=== PATIENT | female | born 1960 | race American Indian/Alaskan Native ===

== ENCOUNTER 2017-06-24 08:56 | Day surgery (SDC) | payer OTHER ==
[~2017-06-24 08:56] MED LIST: ANCEF/STERILE WATER 2 GM/20 ML IV NR
[2017-06-24] MEDS ORDERED: LACTATED RINGERS 1,000 ML ONE (10:30)
[2017-06-24] MEDS ORDERED: PEPCID IV ONE (10:46)
[2017-06-24] MEDS ORDERED: LACTATED RINGERS 1,000 ML IV SCH (11:00)
[2017-06-24] MEDS ORDERED: VERSED IV NR (11:00)
[2017-06-24] MEDS ORDERED: PEPCID IV NR (11:00)
[2017-06-24] MEDS ORDERED: VERSED ONE (12:41)
[2017-06-24] MEDS ORDERED: DIPRIVAN 10 MG/ML IV ONE ×2 (12:41→13:29)
[2017-06-24] MEDS ORDERED: XYLOCAINE MPF 2% ONE (12:41)
[2017-06-24] MEDS ORDERED: SUBLIMAZE ONE (12:41)
[2017-06-24] MEDS ORDERED: HEPARIN 10,000 UNITS/10 ML ONE (12:43)
[2017-06-24] MEDS ORDERED: MARCAINE 0.25% INFILTRATI ONE (12:44)
[2017-06-24] MEDS ORDERED: NACL 0.9% 250ML 250 ML ONE (12:44)
[2017-06-24] MEDS ORDERED: XYLOCAINE 1%/ EPI 1:100,000 INFILTRATI ONE ×2 (12:45→13:17)
[2017-06-24] MEDS ORDERED: MARCAINE 0.25% IR ONE (13:00)
[2017-06-24] MEDS ORDERED: NACL 0.9% 250ML IV ONE (13:26)
[2017-06-24] MEDS ORDERED: HEPARIN 10,000 UNITS/10 ML IV ONE ×2 (13:26→13:42)
[2017-06-24] MEDS ORDERED: NACL 0.9% IR ONE ×2 (13:45→13:46)
--- NOTE | 2017-06-24 13:57 | Post Operative Note ---
Pre-op diagnosis: Poor venous access Post-op diagnosis: same Findings: as above Procedure: Rt IJ inf port insertion with fluro and sono site Anesthesia: MAC Surgeon: MARYBETH DUARTE Estimated blood loss: minimal Pathology: none Condition: stable Disposition: PACU
--- NOTE | 2017-06-24 13:59 | Discharge Summary ---
Short Stay Discharge Plan Weight Bearing Status: Full Weight Bearing Diet: regular Wound: open to air Follow up with: MADELIN LAUGHLIN MD [Primary Care Provider] - 7 Days Prescriptions: HYDROcodone/ACETAMINOPHEN [Hydrocodon-Acetaminophen 5-325] 1 each PO Q4HR PRN # 20 tablet PRN Reason: Pain
[2017-06-24] MEDS ORDERED: NORCO 5/325 PO PRN (14:19)
[2017-06-24 15:14] VITALS: BP 136/79
--- NOTE | 2017-06-24 15:31 | Fluoroscopy Report ---
FLUOROSCOPY CENTRAL VENOUS DEVICE PLACEMENT History: Tobmin-o-Ahat insertion, poor venous access. Findings: A single fluoroscopic image of the precordial region was obtained after placement of a right IJ Drocyw-a-Xqau. The distal tip of the Ykcqgj-s-Khhu terminates near the cavoatrial junction. There is no obvious pneumothorax. The visualized lungs are clear. Impression: Uwvbvh-q-Ndzy is in adequate position. No pneumothorax is visualized.
--- NOTE | 2017-06-24 17:05 | Anesthesia Day of Surgery ---
Anesthesia Day of Surgery - Day of Surgery Patient Examined: Yes Patient H&P Reviewed: Yes Patient is NPO: Yes
--- NOTE | 2017-06-24 17:05 | Anesthesia Consultation ---
Anesthesia Consult and Med Hx Date of service: 06/24/17 - Airway Anesthetic Teeth Evaluation: Good ROM Head & Neck: Adequate Mental/Hyoid Distance: Adequate Mallampati Class: Class II Intubation Access Assessment: Good - Pulmonary Exam CTA: Yes - Cardiac Exam Cardiac Exam: RRR - Pre-Operative Health Status ASA Pre-Surgery Classification: ASA2, ASA3 Proposed Anesthetic Plan: MAC - Cardiovascular System Hx Hypertension: Yes (2004) - Central Nervous System Hx Psychiatric Problems: No - Other Systems Hx Alcohol Use: No Hx Substance Use: No Hx Cancer: Yes
--- NOTE | 2017-06-24 17:06 | Post Anesthesia Evaluation ---
- Post Anesthesia Evaluation Patient Participated: Yes Airway Patent: Yes Stable Respiratory Function: Yes Nausea/Vomiting: No Temp > 96.8F: Yes Pain Manageable: Yes Adequeate Hydration: Yes Anesthesia Complications: No Block Receding Appropriately: Not Applicable Patient on Ventilator: No
--- NOTE | 2017-06-24 19:17 | Operative Report ---
PREOPERATIVE DIAGNOSES: Poor intravenous access for chemotherapy, history of endometrial cancer requiring chemotherapy. POSTOPERATIVE DIAGNOSIS: Poor intravenous access for chemotherapy, history of endometrial cancer requiring chemotherapy. OPERATIVE PROCEDURE: Right internal jugular Infusaport insertion with SonoSite guidance and fluoroscopic control. ANESTHESIA: IV sedation and local 1% Xylocaine with 0.25% Marcaine. INDICATIONS: A 57-year-old female recently diagnosed with endometrial cancer, requires chemotherapy. Peripheral veins are no longer accessible. She is brought in for insertion of her Infusaport. It is to be noted that she had left breast carcinoma 7 years ago, had a mastectomy and had a right-sided Infusaport placed that was removed, but it was elected to go to the same site because of the history of breast cancer and mastectomy on the opposite side. DESCRIPTION OF PROCEDURE: After satisfactory IV sedation, right neck infraclavicular areas were prepped and draped. Skin was covered with Ioban occlusive drape. Right internal jugular vein was identified using a sterile probe over the SonoSite and this was punctured in the first attempt using a large bore needle. Venous blood was aspirated and a guidewire was passed through the needle and the needle was removed. Using fluoroscopy control, the tip of the wire was placed in the distal superior vena cava and the guidewire was anchored to the skin using 3-0 Vicryl. Below the medial third of the clavicle after infiltrating local anesthetic, a 3 cm transverse incision was made, subcutaneous pocket was created for the reservoir. A size 8-Japanese catheter was attached to the port, and both the port and the catheter were flushed with dilute heparin saline solution. Adequate amount the catheter required was measured under fluoroscopy control and excess catheter was cut off. A tunneling device was attached to the catheter and the catheter was brought to the guidewire site in the neck and the tunneling device was removed. Using fluoroscopy control over the guidewire, a dilator cannula and a peel-away sheath were passed. The guidewire was removed and after aspirating for venous blood, the inner cannula was removed. The catheter was passed through the peel-away sheath and the peel-away sheath was removed. There was no twist or kinking on the catheter. The port was accessed using dilute heparin solution. It was functioning well. Later it was flushed with 1 mL of solution containing 1000 units of heparin. The port was anchored to the anterior pectoral fascia at 2 different sites with 2-0 Vicryl. Subcutaneous tissue was approximated with 2-0 Vicryl and skin with 4-0 Monocryl suture. The neck incision was closed with 4-0 Monocryl as well. She tolerated the procedure well and transferred to Postanesthesia Care Unit in satisfactory condition. JOB# [id number] RADHAN/IRON
== END 2017-06-24 15:10 | disposition home or self-care (01) ==
LOC: OR 08:56
PROVIDERS: ATTEND Surgery
DX: Z45.2 Encounter for adjustment and management of vascular access device (principal); E11.9 Type 2 diabetes mellitus without complications; I10 Essential (primary) hypertension; Z85.89 Personal history of malignant neoplasm of other organs and systems; Z85.3 Personal history of malignant neoplasm of breast; Z90.710 Acquired absence of both cervix and uterus; Z90.12 Acquired absence of left breast and nipple; Z98.890 Other specified postprocedural states; Z79.84 Long term (current) use of oral hypoglycemic drugs; Z79.899 Other long term (current) drug therapy
CPT/HCPCS: 36561; 77001; 82962; C1788; J0690; J1644; J2250; J2704; J3010; J7050; J7120

== ENCOUNTER 2019-02-08 14:49 | Inpatient (IN) | payer OTHER ==
[2019-02-08 16:46] LABS: Hematocrit 30.4 % (30.3-42.9); Hemoglobin 9.8 gm/dl (10.1-14.3); Mean Corpuscular HGB Conc 32 % (30-34); Mean Corpuscular Volume 80 fl (79-97); Platelet Count 249 K/mm3 (140-440); Red Cell Distribution Width 15.3 % (13.2-15.2)
[2019-02-08 16:57] LABS: INR 1.14 (0.87-1.13)
[2019-02-08 16:58] LABS: Partial Thromboplastin Time 30.4 Sec. (24.2-36.6)
[2019-02-08 17:04] LABS: Albumin 3.3 g/dL (3.9-5); Calcium 8.9 mg/dL (8.4-10.2)
--- NOTE | 2019-02-08 23:32 | XRay Report ---
CHEST PA AND LATERAL VIEWS INDICATION: dyspnea. COMPARISON: None FINDINGS: Support devices: Right-sided Port-A-Cath projected over the superior vena cava. Right pleural drainag e tube in position. Heart: Upper limits of normal. Lungs/Pleura: Small bilateral pleural effusions, with atelectasis/consolidation in both lung bases. N o pneumothorax. Upper lungs are clear. IMPRESSION: 1. Bilateral pleural effusions with atelectasis/consolidation in the lung bases. Signer Name: Rodney Cano MD Signed: 02/08/2019 11:28 PM Workstation Name: [id number]
[2019-02-08] MEDS ORDERED: ZOFRAN IV ONE (23:49)
[2019-02-08] MEDS ORDERED: MORPHINE IV ONE (23:49)
[2019-02-08] MEDS ORDERED: NORMODYNE IV ONE (23:50)
--- NOTE | 2019-02-09 00:49 | Emergency Department Report ---
ED General Adult HPI - General Chief complaint: Medical Clearance Stated complaint: REF BY DOCTOR Time Seen by Provider: 02/08/19 23:36 Source: patient Mode of arrival: Ambulatory Limitations: No Limitations - History of Present Illness Initial comments: Patient is a 58-year-old Dariela female who was sent in by Dr. Guevara with the [facility] to have evaluation for worsening ascites. Patient has a history of uterine cancer on chemotherapy. Patient states she had a or centesis several weeks ago and currently has no shortness of breath however her a peritoneal drain is not draining and she is having worsening abdominal distention. Patient's a sugar comfortable and was sent in by her physicians to have this addressed. Patient denies fever cough cold congestion. Patient states her discomfort is 8 out of 10. She does state she has some mild nausea as well. Severity scale (0 -10): 8 - Related Data Home Medications Medication Instructions Recorded Confirmed Last Taken Calcium Carbonate [Calcium] 500 mg PO DAILY 06/19/17 06/24/17 06/22/17 Cholecalciferol (Vitamin D3) 2,000 unit PO DAILY 06/19/17 06/24/17 06/22/17 [Vitamin D3] amLODIPine [Norvasc] 10 mg PO DAILY 06/19/17 06/24/17 06/23/17 10:00 metFORMIN [Glucophage] 500 mg PO QDAY 06/19/17 06/24/17 06/21/17 Previous Rx's Medication Instructions Recorded Last Taken Type HYDROcodone/ACETAMINOPHEN 1 each PO Q4HR PRN #20 tablet 06/24/17 Unknown Rx [Hydrocodon-Acetaminophen 5-325] Allergies Allergy/AdvReac Type Severity Reaction Status Date / Time No Known Allergies Allergy Verified 06/19/17 09:23 ED Review of Systems ROS: Stated complaint: REF BY DOCTOR Other details as noted in HPI Comment: All other systems reviewed and negative ED Past Medical Hx - Past Medical History Previous Medical History?: Yes Hx Hypertension: Yes (2004) Hx Diabetes: Yes (2013) Hx HIV: No - Surgical History Past Surgical History?: Yes Hx Breast Surgery: Yes (L BREAST RECONSTRUCTION) Additional Surgical History: PLEURAVAC - Social History Smoking Status: Never Smoker Substance Use Type: None - Medications Home Medications: Home Medications Medication Instructions Recorded Confirmed Last Taken Type Calcium Carbonate [Calcium] 500 mg PO DAILY 06/19/17 06/24/1718 History Cholecalciferol (Vitamin D3) 2,000 unit PO DAILY 06/19/17 06/24/17 06/22/17 History [Vitamin D3] amLODIPine [Norvasc] 10 mg PO DAILY 06/19/17 06/24/17 06/23/17 10:00 History metFORMIN [Glucophage] 500 mg PO QDAY 06/19/17 06/24/17 06/21/17 History HYDROcodone/ACETAMINOPHEN 1 each PO Q4HR PRN #20 tablet 06/24/17 Unknown Rx [Hydrocodon-Acetaminophen 5-325] ED Physical Exam - General Limitations: No Limitations General appearance: alert, in no apparent distress - Head Head exam: Present: atraumatic, normocephalic - Eye Eye exam: Present: normal appearance, PERRL, EOMI - ENT ENT exam: Present: mucous membranes moist - Neck Neck exam: Present: normal inspection - Respiratory Respiratory exam: Present: normal lung sounds bilaterally. Absent: respiratory distress, wheezes, rales, rhonchi, stridor, chest wall tenderness - Cardiovascular Cardiovascular Exam: Present: normal rhythm, tachycardia. Absent: systolic murmur, diastolic murmur, rubs, gallop - GI/Abdominal GI/Abdominal exam: Present: soft, distended (patient with a right lower quadrant peritoneal drain.), normal bowel sounds. Absent: tenderness, guarding, rebound, rigid - Extremities Exam Extremities exam: Present: normal inspection - Back Exam Back exam: Present: normal inspection - Neurological Exam Neurological exam: Present: alert, oriented X3 - Psychiatric Psychiatric exam: Present: normal affect, normal mood - Skin Skin exam: Present: warm, dry, intact, normal color. Absent: rash ED Course Vital Signs 02/08/19 02/08/19 02/08/19 15:23 15:57 18:05 Temperature 98.3 F 98.2 F Pulse Rate 129 H 122 H 131 H Respiratory 18 22 22 Rate Blood Pressure 170/104 Blood Pressure 167/107 [Right] O2 Sat by Pulse 86 97 94 Oximetry 02/08/19 02/09/19 02/09/19 20:51 00:30 00:41 Temperature 98.9 F Pulse Rate 134 H 125 H Respiratory 26 H 20 Rate Blood Pressure 146/90 Blood Pressure 198/102 [Right] O2 Sat by Pulse 93 Oximetry ED Medical Decision Making - Lab Data Result diagrams: 02/08/19 16:29 02/08/19 16:29 Lab Results 02/08/19 02/08/19 02/08/19 Range/Units 16:29 16:29 16:29 WBC 8.7 (4.5-11.0) K/mm3 RBC 3.80 (3.65-5.03) M/mm3 Hgb 9.8 L (10.1-14.3) gm/dl Hct 30.4 (30.3-42.9) % MCV 80 (79-97) fl MCH 26 L (28-32) pg MCHC 32 (30-34) % RDW 15.3 H (13.2-15.2) % Plt Count 249 (140-440) K/mm3 PT 14.3 (12.2-14.9) Sec. INR 1.14 H (0.87-1.13) APTT 30.4 (24.2-36.6) Sec. Sodium 141 (137-145) mmol/L Potassium 4.4 (3.6-5.0) mmol/L Chloride 99.0 (98-107) mmol/L Carbon Dioxide 24 (22-30) mmol/L Anion Gap 22 mmol/L BUN 18 H (7-17) mg/dL Creatinine 1.4 H (0.7-1.2) mg/dL Estimated GFR 47 ml/min BUN/Creatinine Ratio 13 % Glucose 113 H (65-100) mg/dL Calcium 8.9 (8.4-10.2) mg/dL Total Bilirubin 0.40 (0.1-1.2) mg/dL AST 24 (5-40) units/L ALT 10 (7-56) units/L Alkaline Phosphatase 86 (35-129) units/L Total Protein 7.8 (6.3-8.2) g/dL Albumin 3.3 L (3.9-5) g/dL Albumin/Globulin Ratio 0.7 % - Radiology Data [facility] [address] [place] [address] XRay Report Signed Patient: CHAR DAVIS MR #: [id number] : 1960 Acct:[id number] Age/Sex: 58 / F ADM Date: 02/08/19 Loc: ED Attending Dr: Ordering Physician: LIA ANDUJAR Date of Service: 02/08/19 Procedure(s): XR chest routine 2V Accession Number(s): [id number] cc: LIA ANDUJAR Fluoro Time In Minutes: CHEST PA AND LATERAL VIEWS INDICATION: dyspnea. COMPARISON: None FINDINGS: Support devices: Right-sided Port-A-Cath projected over the superior vena cava. Right pleural drainage tube in position. Heart: Upper limits of normal. Lungs/Pleura: Small bilateral pleural effusions, with atelectasis/consolidation in both lung bases. No pneumothorax. Upper lungs are clear. IMPRESSION: 1. Bilateral pleural effusions with atelectasis/consolidation in the lung bases. Signer Name: Rodney Cano MD Signed: 02/08/2019 11:28 PM Workstation Name: [id number] Transcribed By: TM Dictated By: Rodney Cano MD Electronically Authenticated By: Rodney Cano MD Signed Date/Time: 02/08/19 7888 - Medical Decision Making Patient is a 58-year-old Dariela female who has uterine cancer presenting with worsening ascites secondary to dysfunctional peritoneal drain. Patient had a prolonged time in our waiting room unfortunately. Patient's blood pressure was elevated mole on multiple checks while in the waiting room. Was patient had cerumen was more comfortable and was able to lie down patient blood pressure did improve without medications. Patient's heart rate also is improving as well. Patient given morphine for her abdominal discomfort. Patient to be admitted to the hospitalist service. Patient started on oxygen. Critical care attestation.: If time is entered above; I have spent that time in minutes in the direct care of this critically ill patient, excluding procedure time. ED Disposition Clinical Impression: Hypertensive urgency, malignant, Hypoxia Ascites Qualifiers: Ascites type: malignant Qualified Code(s): R18.0 - Malignant ascites Uterine cancer Qualifiers: Malignant neoplasm of uterus location: unspecified site of uterus Qualified Code(s): C55 - Malignant neoplasm of uterus, part unspecified Disposition: OP ADMIT IP TO THIS HOSP Is pt being admited?: Yes Does the pt Need Aspirin: No Condition: Stable Time of Disposition: 00:49
[2019-02-09] MEDS ORDERED: LOPRESSOR IV ONE ×2 (01:41→01:43)
[2019-02-09] MEDS ORDERED: ZOFRAN IV PRN (01:49)
[2019-02-09] MEDS ORDERED: MILK OF MAGNESIA PO PRN (01:49)
--- NOTE | 2019-02-09 01:53 | History and Physical Report ---
<TIM TRONCOSO - Last Filed: 02/09/19 02:38> History of Present Illness Date of examination: 02/09/19 Date of admission: 02/09/19 Chief complaint: abdominal distention History of present illness: Patient is a 58-year-old female with PMHx of uterine ca (on chemo), DM type 2, HTN, who was sent to the ER by her oncologist (Dr. Guevara with the [facility]) for evaluation of abdominal distention and worsening ascites. Patient states she recently had a pleuX inserted for fluid removal (every other day), she developed abdominal distention and diminished drainage from her pleuX catheter. Pt reports that she had a paracentesis several weeks ago and her next chemo is in February, she reports increase discomfort in her abdomen, bilateral lower extremities swelling, denies SOB, denies orthopnea, denies nausea or vomiting, denies fever or chills. Past History Past Medical History: diabetes, hypertension Past Surgical History: No surgical history Social history: no significant social history Family history: no significant family history Medications and Allergies Allergies Allergy/AdvReac Type Severity Reaction Status Date / Time No Known Allergies Allergy Verified 06/19/17 09:23 Home Medications Medication Instructions Recorded Confirmed Last Taken Type Calcium Carbonate [Calcium] 500 mg PO DAILY 06/19/17 02/09/19 06/22/17 History Cholecalciferol (Vitamin D3) 2,000 unit PO DAILY 06/19/17 02/09/19 06/22/17 History [Vitamin D3] amLODIPine [Norvasc] 10 mg PO DAILY 06/19/17 02/09/19 06/23/17 10:00 History metFORMIN [Glucophage] 500 mg PO QDAY 06/19/17 02/09/19 06/21/17 History Acetaminophen/Codeine [Tylenol 1 tab PO Q6H PRN 02/09/19 02/09/19 Unknown History /Codeine # 3 tab] Ondansetron [Zofran Odt] 4 mg PO Q8HR PRN 02/09/19 02/09/19 Unknown History Active Meds: Active Medications Acetaminophen (Tylenol) 650 mg PO Q4H PRN PRN Reason: Pain MILD(1-3)/Fever >100.5/SAMANIEGO Enoxaparin Sodium (Lovenox) 40 mg SUB-Q QDAY@1000 LUIS MIGUEL Ondansetron HCl (Zofran) 4 mg IV Q8H PRN PRN Reason: Nausea And Vomiting Review of Systems Gastrointestinal: abdominal pain, other (abdominal distention) Exam - Constitutional Vitals: Temp Pulse Resp BP Pulse Ox 98.9 F 120 H 20 149/61 96 02/09/19 01:37 02/09/19 01:37 02/09/19 01:37 02/09/19 01:37 02/09/19 01:37 General appearance: Present: no acute distress - EENT Eyes: Present: PERRL, EOM intact ENT: hearing intact - Neck Neck: Present: normal ROM - Respiratory Respiratory: right: CTA - Cardiovascular Rhythm: regular - Extremities Extremities: no ischemia Extremity abnormal: edema (raquel lower exts) Peripheral Pulses: within normal limits - Abdominal General gastrointestinal: Present: tender, distended, rigid, normal bowel sounds - Rectal Rectal Exam: deferred - Integumentary Integumentary: Present: warm, dry, erythema - Musculoskeletal Musculoskeletal: strength equal bilaterally - Psychiatric Psychiatric: cooperative - Neurologic Neurologic: moves all extremities Results - Labs CBC & Chem 7: 02/08/19 16:29 02/08/19 16:29 Labs: Laboratory Last Values WBC 8.7 K/mm3 (4.5-11.0) 02/08/19 16:29 RBC 3.80 M/mm3 (3.65-5.03) 02/08/19 16:29 Hgb 9.8 gm/dl (10.1-14.3) L 02/08/19 16:29 Hct 30.4 % (30.3-42.9) 02/08/19 16:29 MCV 80 fl (79-97) 02/08/19 16:29 MCH 26 pg (28-32) L 02/08/19 16:29 MCHC 32 % (30-34) 02/08/19 16:29 RDW 15.3 % (13.2-15.2) H 02/08/19 16:29 Plt Count 249 K/mm3 (140-440) 02/08/19 16:29 PT 14.3 Sec. (12.2-14.9) 02/08/19 16:29 INR 1.14 (0.87-1.13) H 02/08/19 16:29 APTT 30.4 Sec. (24.2-36.6) 02/08/19 16:29 Sodium 141 mmol/L (137-145) 02/08/19 16:29 Potassium 4.4 mmol/L (3.6-5.0) 02/08/19 16:29 Chloride 99.0 mmol/L (98-107) 02/08/19 16:29 Carbon Dioxide 24 mmol/L (22-30) 02/08/19 16:29 Anion Gap 22 mmol/L 02/08/19 16:29 BUN 18 mg/dL (7-17) H 02/08/19 16:29 Creatinine 1.4 mg/dL (0.7-1.2) H 02/08/19 16:29 Estimated GFR 47 ml/min 02/08/19 16:29 BUN/Creatinine Ratio 13 % 02/08/19 16:29 Glucose 113 mg/dL (65-100) H 02/08/19 16:29 Calcium 8.9 mg/dL (8.4-10.2) 02/08/19 16:29 Total Bilirubin 0.40 mg/dL (0.1-1.2) 02/08/19 16:29 AST 24 units/L (5-40) 02/08/19 16:29 ALT 10 units/L (7-56) 02/08/19 16:29 Alkaline Phosphatase 86 units/L (35-129) 02/08/19 16:29 Total Protein 7.8 g/dL (6.3-8.2) 02/08/19 16:29 Albumin 3.3 g/dL (3.9-5) L 02/08/19 16:29 Albumin/Globulin Ratio 0.7 % 02/08/19 16:29 Assessment and Plan Assessment and plan: Uterine ca (s/p chemo) Raquel pleural effusion S/p pleuX cath for pleural drainage New abdominal distention/Ascities Accelerated HTN Anemia Mild renal insufficincy DM type 2 Plan: Admit for abdominal distention IR consult for possible paracentesis in am NPO now Monitor blood glucose q6hr IV Detroxe 5 for hypoglycemia management while NPO Start spironolactone PO and Lasix IV for edema DVT prohylaxis Plan d/w pt, voiced understanding Pt's condition d/w Dr Samuels Advance Directives: Yes VTE prophylaxis?: Mechanical Plan of care discussed with patient/family: Yes <MEI SAMUELS E - Last Filed: 02/09/19 03:34> History of Present Illness Date of admission: 02/09/19 02:35 Medications and Allergies Active Meds: Active Medications Acetaminophen (Tylenol) 650 mg PO Q4H PRN PRN Reason: Pain MILD(1-3)/Fever >100.5/SAMANIEGO Enoxaparin Sodium (Lovenox) 40 mg SUB-Q QDAY@1000 LUIS MIGUEL Sodium Chloride (Nacl 0.9% 1000 Ml) 1,000 mls @ 75 mls/hr IV DIRECT LUIS MIGUEL Magnesium Hydroxide (Milk Of Magnesia) 30 ml PO Q4H PRN PRN Reason: Constipation Ondansetron HCl (Zofran) 4 mg IV Q8H PRN PRN Reason: Nausea And Vomiting Exam - Constitutional Vitals: Temp Pulse Resp BP Pulse Ox 98.9 F 99 H 24 144/91 95 02/09/19 01:37 02/09/19 02:13 02/09/19 02:13 02/09/19 02:13 02/09/19 02:13 Results - Labs CBC & Chem 7: 02/08/19 16:29 02/08/19 16:29 Labs: Laboratory Last Values WBC 8.7 K/mm3 (4.5-11.0) 02/08/19 16:29 RBC 3.80 M/mm3 (3.65-5.03) 02/08/19 16:29 Hgb 9.8 gm/dl (10.1-14.3) L 02/08/19 16:29 Hct 30.4 % (30.3-42.9) 02/08/19 16:29 MCV 80 fl (79-97) 02/08/19 16:29 MCH 26 pg (28-32) L 02/08/19 16:29 MCHC 32 % (30-34) 02/08/19 16:29 RDW 15.3 % (13.2-15.2) H 02/08/19 16:29 Plt Count 249 K/mm3 (140-440) 02/08/19 16:29 PT 14.3 Sec. (12.2-14.9) 02/08/19 16:29 INR 1.14 (0.87-1.13) H 02/08/19 16:29 APTT 30.4 Sec. (24.2-36.6) 02/08/19 16:29 Sodium 141 mmol/L (137-145) 02/08/19 16:29 Potassium 4.4 mmol/L (3.6-5.0) 02/08/19 16:29 Chloride 99.0 mmol/L (98-107) 02/08/19 16:29 Carbon Dioxide 24 mmol/L (22-30) 02/08/19 16:29 Anion Gap 22 mmol/L 02/08/19 16:29 BUN 18 mg/dL (7-17) H 02/08/19 16:29 Creatinine 1.4 mg/dL (0.7-1.2) H 02/08/19 16:29 Estimated GFR 47 ml/min 02/08/19 16:29 BUN/Creatinine Ratio 13 % 02/08/19 16:29 Glucose 113 mg/dL (65-100) H 02/08/19 16:29 Calcium 8.9 mg/dL (8.4-10.2) 02/08/19 16:29 Total Bilirubin 0.40 mg/dL (0.1-1.2) 02/08/19 16:29 AST 24 units/L (5-40) 02/08/19 16:29 ALT 10 units/L (7-56) 02/08/19 16:29 Alkaline Phosphatase 86 units/L (35-129) 02/08/19 16:29 Total Protein 7.8 g/dL (6.3-8.2) 02/08/19 16:29 Albumin 3.3 g/dL (3.9-5) L 02/08/19 16:29 Albumin/Globulin Ratio 0.7 % 02/08/19 16:29 Assessment and Plan Assessment and plan: 58-year-old woman with a history of hypertension, diabetes, breast cancer, uterine cancer dispose peritoneal drain this emergency room with complaints of worsening ascites, increased abdominal girth. She stated that she started having decreased output from the drain on January 19. Agree with plan as stated above except only Lasix for edema. Dose of IV Lopressor now for tachycardia/hypertension uncontrolled
[2019-02-09] MEDS ORDERED: NACL 0.9% 1000 ML 1,000 ML IV SCH (02:00)
--- NOTE | 2019-02-09 08:29 | Event Note ---
Date: 02/09/19 [id number]
[2019-02-09] MEDS: LOVENOX SUB-Q SCH (09:49)
[2019-02-09] MEDS: LASIX IV SCH (09:50)
[2019-02-09] MEDS: ALDACTONE PO SCH (09:51)
[2019-02-09] MEDS ORDERED: LOVENOX SUB-Q SCH (10:00)
--- NOTE | 2019-02-09 11:07 | Consultation ---
History of Present Illness - Reason for Consult Consult date: 02/09/19 Ascites and pleural pleurex - History of Present Illness 58-year-old female with PMHx of uterine ca (on chemo), DM type 2, HTN, who was sent to the ER by her oncologist (Dr. Cook) for evaluation of abdominal distention and worsening ascites. Patient states she recently had a pleurX inserted for fluid removal (every other day), she developed abdominal distention and diminished drainage from her pleuX catheter for the last month. She reports increase discomfort in her abdomen, bilateral lower extremities swelling, denies SOB, denies orthopnea, denies nausea or vomiting, denies fever or chills. Interventional consultation for evaluation. Regarding ascites, patient has had a distant paracentesis and now requires a second paracentesis. Discussed with the patient that if she requires a another paracentesis, she may benefit from peritoneal catheter placement. Regarding the right pleural tunnel catheter, patient has minimal drainage (30 mL's or less) every other day. Chest regular x-ray shows a loculated effusion. Discussed with oncology and recommend pulmonology consult. If pulmonology agrees, we'll plan for pleural catheter removal. Past History Past Medical History: diabetes, hypertension Past Surgical History: No surgical history Social history: no significant social history Family history: no significant family history Medications and Allergies Allergies Allergy/AdvReac Type Severity Reaction Status Date / Time No Known Allergies Allergy Verified 06/19/17 09:23 Home Medications Medication Instructions Recorded Confirmed Last Taken Type Calcium Carbonate [Calcium] 500 mg PO DAILY 06/19/17 02/09/19 06/22/17 History Cholecalciferol (Vitamin D3) 2,000 unit PO DAILY 06/19/17 02/09/19 06/22/17 History [Vitamin D3] amLODIPine [Norvasc] 10 mg PO DAILY 06/19/17 02/09/19 06/23/17 10:00 History metFORMIN [Glucophage] 500 mg PO QDAY 06/19/17 02/09/19 06/21/17 History Acetaminophen/Codeine [Tylenol 1 tab PO Q6H PRN 02/09/19 02/09/19 Unknown History /Codeine # 3 tab] Ondansetron [Zofran Odt] 4 mg PO Q8HR PRN 02/09/19 02/09/19 Unknown History Active Meds: Active Medications Acetaminophen (Tylenol) 650 mg PO Q4H PRN PRN Reason: Pain MILD(1-3)/Fever >100.5/SAMANIEGO Enoxaparin Sodium (Lovenox) 40 mg SUB-Q QDAY@1000 LUIS MIGUEL Last Admin: 02/09/19 09:49 Dose: 40 mg Documented by: Furosemide (Lasix) 20 mg IV QDAY [facility] Last Admin: 02/09/19 09:50 Dose: 20 mg Documented by: Sodium Chloride (Nacl 0.9% 1000 Ml) 1,000 mls @ 75 mls/hr IV DIRECT [facility] Magnesium Hydroxide (Milk Of Magnesia) 30 ml PO Q4H PRN PRN Reason: Constipation Ondansetron HCl (Zofran) 4 mg IV Q8H PRN PRN Reason: Nausea And Vomiting Spironolactone (Aldactone) 50 mg PO QDAY [facility] Last Admin: 02/09/19 09:51 Dose: 50 mg Documented by: Review of Systems All systems: negative (see HPI) Exam - Constitutional Vitals: Temp Pulse Resp BP Pulse Ox 98.8 F 119 H 24 152/93 95 02/09/19 09:30 02/09/19 09:51 02/09/19 09:30 02/09/19 09:51 02/09/19 09:30 General appearance: Present: no acute distress - EENT Eyes: Present: EOM intact - Respiratory Respiratory effort: normal, other (right pleural catheter) - Abdominal General gastrointestinal: Present: distended (ascites) - Psychiatric Psychiatric: appropriate mood/affect, cooperative Results - Labs CBC & Chem 7: 02/08/19 16:29 02/08/19 16:29 Labs: Abnormal lab results 02/08/19 02/08/19 02/08/19 Range/Units 16:29 16:29 16:29 Hgb 9.8 L (10.1-14.3) gm/dl MCH 26 L (28-32) pg RDW 15.3 H (13.2-15.2) % INR 1.14 H (0.87-1.13) BUN 18 H (7-17) mg/dL Creatinine 1.4 H (0.7-1.2) mg/dL Glucose 113 H (65-100) mg/dL Albumin 3.3 L (3.9-5) g/dL Assessment and Plan 58-year-old female with uterine malignancy with ascites and right pleural tunnel catheter. Regarding ascites, patient has had a distant paracentesis and now requires a second paracentesis. Recommend cytology suspect malignant effusion. Ordered CT scan. Discussed with Dr. Cook and the patient that if she requires another paracentesis, she may benefit from peritoneal catheter placement. Regarding the right pleural tunnel catheter, patient has minimal drainage (30 mL's or less) every other day. Chest regular x-ray shows a loculated effusion. Ordered CT scan. I suspect the catheter can be removed given the lack of drainage. Discussed with oncology and recommend pulmonology consult. If pulmonology agrees, the we will plan for pleural catheter removal.
--- NOTE | 2019-02-09 13:33 | Cat Scan Report ---
CT CHEST, ABDOMEN, AND PELVIS WITHOUT IV CONTRAST INDICATION / CLINICAL INFORMATION: pleural catheter with decreasing drainage. TECHNIQUE: Axial CT images were obtained through the chest, abdomen, and pelvis. All CT scans at this location a re performed using CT dose reduction for ALARA by means of automated exposure control. COMPARISON: None available. FINDINGS: HEART: No significant abnormality. THORACIC AORTA: Mild atherosclerotic plaque is noted. MEDIASTINUM and JOLYNN: There is adenopathy in the right pericardial fat with nodes measuring 2.3 and 1 .8 cm respectively. LUNGS: There is bibasilar airspace disease which appears to represent atelectasis. No discrete pulmon katelin nodules are identified. Lesions could be obscured by atelectatic lung PLEURA: There are bilateral pleural effusions left greater than right. Right effusion is partially lo culated the loculated component is lateral to the chest tube. No pneumothorax. ADDITIONAL CHEST FINDINGS: None. LIVER: There are low-density lesions noted within the dome of the liver and in the right lobe of the liver largest lesion is in the right lobe measures approximately 3.5 cm. GALLBLADDER: There is high density material in the gallbladder possibly representing sludge BILE DUCTS: Common bile duct measures approximately 7 mm PANCREAS: No significant abnormality. SPLEEN: No significant abnormality. ADRENALS: No significant abnormality. RIGHT KIDNEY and URETER: No significant abnormality. LEFT KIDNEY and URETER: No significant abnormality. STOMACH and SMALL BOWEL: No significant abnormality. COLON: The wall of the sigmoid colon appears thickened. This may represent abnormal soft tissue surro unding it. It is difficult to determine further on this noncontrasted exam. APPENDIX: No significant abnormality. PERITONEUM: There is a large amount of ascites No free air. No fluid collection. LYMPH NODES: There is a 1.6 cm node along the right pelvic sidewall. There is adenopathy in the right pericardial fat described above. There is a 2.5 cm node adjacent to the right common iliac vessels. AORTA and ARTERIES: No significant abnormality. IVC and VEINS: No significant abnormality. On this noncontrast study URINARY BLADDER: No significant abnormality. REPRODUCTIVE ORGANS: No significant abnormality. ADDITIONAL FINDINGS: None. SKELETAL SYSTEM: No significant abnormality. IMPRESSION: 1. There is a large amount of ascites. There is adenopathy right pericardial location and pelvis.. 2. The sigmoid colon is abnormal in appearance. The wall appears thickened. This could represent mass adjacent to and involving the colon extrinsically. Is possible this is a colonic process with wall t hickening and involvement of the sigmoid colon 3. There is a loculated right pleural effusion. There is a small left effusion. 4. There are low-density lesions in the liver suspicious for metastases. Signer Name: Tariq Goldsmith MD Signed: 02/09/2019 1:28 PM Workstation Name: [id number]
--- NOTE | 2019-02-09 14:34 | Procedure Note ---
Date of procedure: 02/09/19 Pre-op diagnosis: ascites Post-op diagnosis: same Procedure: US Paracentesis Findings: moderate ascites Anesthesia: local Surgeon: ISA JIMENEZ Estimated blood loss: none Pathology: list (120cc) Specimen disposition: to lab Condition: stable Disposition: floor
--- NOTE | 2019-02-09 16:01 | Ultrasound Report ---
ULTRASOUND-GUIDED PARACENTESIS HISTORY: Ascites. PROCEDURE: The risks (including but not limited to bleeding, infection, and bowel injury) and benefi ts were explained to the patient and informed consent was obtained. A time out procedure was perform ed. Ultrasound was used to evaluate the abdomen and locate the largest ascites fluid pocket. Once the sk in was marked, the procedure site was prepped and draped in the usual sterile fashion and lidocaine w as used for local anesthesia. A skin adonay was made and a 5 [place] centesis catheter was placed. The patient was monitored closely throughout the procedure, and a total of 4100 mL of clear yellow fluid was aspirated. Samples were sent to the lab for further evaluation per the primary clinicians order s. The patient tolerated the procedure well with no complications. IMPRESSION: Successful ultrasound-guided paracentesis as described. Signer Name: Chuck Cruz Jr, MD Signed: 02/09/2019 3:57 PM Workstation Name: [id number]
[2019-02-09] MEDS: TYLENOL PO PRN (18:30)
[2019-02-09] MEDS ORDERED: APRESOLINE IV PRN (20:42)
--- NOTE | 2019-02-09 23:44 | Consultation ---
History of Present Illness Consult date: 02/09/19 Requesting physician: VERN REYES Reason for consult: dyspnea History of present illness: 58 yo with uterine cancer on chemo, admitted with worsening abd discomfort and distension. Has chronic SOB, made worse by worsening abd girth. Symptoms better after paracentesis which was just done, with ~ 4 liters off. Denies chest pain, fevers, chills. Has a dry cough. PleurX cath placed for R effusion 12/2018, now draining only ~ 30mL every other day. Active Medications Acetaminophen (Tylenol) 650 mg PO Q4H PRN PRN Reason: Pain MILD(1-3)/Fever >100.5/SAMANIEGO Last Admin: 02/09/19 18:30 Dose: 650 mg Documented by: Enoxaparin Sodium (Lovenox) 40 mg SUB-Q QDAY@1000 LUIS MIGUEL Last Admin: 02/09/19 09:49 Dose: 40 mg Documented by: Furosemide (Lasix) 20 mg IV QDAY [facility] Last Admin: 02/09/19 09:50 Dose: 20 mg Documented by: Hydralazine HCl (Apresoline) 5 mg IV Q4HR PRN PRN Reason: Blood Pressure Magnesium Hydroxide (Milk Of Magnesia) 30 ml PO Q4H PRN PRN Reason: Constipation Ondansetron HCl (Zofran) 4 mg IV Q8H PRN PRN Reason: Nausea And Vomiting Spironolactone (Aldactone) 50 mg PO QDAY [facility] Last Admin: 02/09/19 09:51 Dose: 50 mg Documented by: Past History Past Medical History: diabetes, hypertension, other (Uterine cancer) Past Surgical History: No surgical history Social history: no significant social history, full code. denies: smoking, alcohol abuse, prescription drug abuse, IV drug use Family history: no significant family history Medications and Allergies Allergies Allergy/AdvReac Type Severity Reaction Status Date / Time No Known Allergies Allergy Verified 06/19/17 09:23 Home Medications Medication Instructions Recorded Confirmed Last Taken Type Calcium Carbonate [Calcium] 500 mg PO DAILY 06/19/17 02/09/19 06/22/17 History Cholecalciferol (Vitamin D3) 2,000 unit PO DAILY 06/19/17 02/09/19 06/22/17 History [Vitamin D3] amLODIPine [Norvasc] 10 mg PO DAILY 06/19/17 02/09/19 06/23/17 10:00 History metFORMIN [Glucophage] 500 mg PO QDAY 06/19/17 02/09/19 06/21/17 History Acetaminophen/Codeine [Tylenol 1 tab PO Q6H PRN 02/09/19 02/09/19 Unknown History /Codeine # 3 tab] Ondansetron [Zofran Odt] 4 mg PO Q8HR PRN 02/09/19 02/09/19 Unknown History Active Meds: Active Medications Acetaminophen (Tylenol) 650 mg PO Q4H PRN PRN Reason: Pain MILD(1-3)/Fever >100.5/SAMANIEGO Last Admin: 02/09/19 18:30 Dose: 650 mg Documented by: Enoxaparin Sodium (Lovenox) 40 mg SUB-Q QDAY@1000 [facility] MIGUEL Last Admin: 02/09/19 09:49 Dose: 40 mg Documented by: Furosemide (Lasix) 20 mg IV QDAY [facility] Last Admin: 02/09/19 09:50 Dose: 20 mg Documented by: Hydralazine HCl (Apresoline) 5 mg IV Q4HR PRN PRN Reason: Blood Pressure Magnesium Hydroxide (Milk Of Magnesia) 30 ml PO Q4H PRN PRN Reason: Constipation Ondansetron HCl (Zofran) 4 mg IV Q8H PRN PRN Reason: Nausea And Vomiting Spironolactone (Aldactone) 50 mg PO QDAY [facility] Last Admin: 02/09/19 09:51 Dose: 50 mg Documented by: Review of Systems All systems: negative Physical Examination Vital signs: Vital Signs Temp Pulse Resp BP Pulse Ox 98.3 F 129 H 18 170/104 86 02/08/19 15:23 02/08/19 15:23 02/08/19 15:23 02/08/19 15:23 02/08/19 15:23 General appearance: no acute distress, alert Eyes: non-icteric ENT: oropharynx moist Neck: supple, no lymphadenopathy Effort: normal Ascultation: Bilateral: diminished breath sounds (bases) Cardiovascular: regular rate and rhythm (no mrg) Gastrointestinal: normoactive bowel sounds, soft, non-tender, non-distended Integumentary: normal Extremities: no cyanosis, no edema, pink and warm normal mental status, non-focal exam, pupils equal and round, CN II-XII normal mood appropriate, affect normal Results - Laboratory Findings CBC and BMP: 02/08/19 16:29 02/08/19 16:29 PT/INR, D-dimer PT 14.3 Sec. (12.2-14.9) 02/08/19 16:29 INR 1.14 (0.87-1.13) H 02/08/19 16:29 Abnormal lab findings: Abnormal Labs 02/08/19 02/08/19 02/08/19 16:29 16:29 16:29 Hgb 9.8 L MCH 26 L RDW 15.3 H INR 1.14 H BUN 18 H Creatinine 1.4 H Glucose 113 H Albumin 3.3 L - Diagnostic Findings Chest x-ray: report reviewed, image reviewed CT scan - chest: report reviewed, image reviewed Assessment and Plan Imp: 1. Pleural effusions 2. Ascites 3. Uterine cancer 4. ALICIA versus CKD Rec: 1. With small output now, and only minimal loculated effusion on R, agree w/ PleurX cath removal 2. Monitor the L effusion radiographically 3. Stop IVFs; cont. gentle diuresis 4. DVT PPx Plan of care reviewed w/ patient, she understands/agrees Thanks kindly for the consult.
--- NOTE | 2019-02-10 00:31 | Consultation ---
REFERRED BY: Adelaida Samuels MD REASON FOR CONSULTATION: History of uterine cancer, stage IV. HISTORY OF PRESENT ILLNESS: I saw the patient, a 58-year-old female, in the medical floor. The patient was first seen by me in late November 2018. The patient has history of uterine cancer, which was diagnosed in 2016. She received 6 cycles of carbo/taxol by Dr. Ferrell in September 2018. There was intra-abdominal recurrence. She has recently started Doxil based treatment. In the interim, the patient had shortness of breath, right pleural effusion for which PleurX catheter was placed in [facility]. The patient also has past history of left breast cancer in 2004, for which she underwent treatment in [place], [place] with lumpectomy, mastectomy. There is a question of recurrence in 2007. The details of this is not clear. The patient received chemotherapy, radiation, and was on Herceptin for 1 year until 2005. She came to the hospital because of abdominal distention. I had seen her in the clinic. She had received chemotherapy of Doxil on 01/29/2019, is not due till 02/26/2019. For the right PleurX catheter, the pleural fluid drainage was about 50 mL every other day. She has nausea, vomiting. No diarrhea. No seizure, syncope or loss of consciousness. PAST MEDICAL HISTORY: As above, also has elevated CA-125. Genetic testing was negative. Caris testing done in 2017 showed response to hughes and Doxil. Diabetes and hypertension. PAST SURGICAL HISTORY: Port placement, left breast surgery and uterine procedure by Dr. Ferrell. SOCIAL HISTORY: Not contributory. FAMILY HISTORY: Not significant. ALLERGIES: None. HOME MEDICATION: Includes Zofran. PHYSICAL EXAMINATION: VITAL SIGNS: Temperature 98.9, pulse 112, respirations 22, BP 149/95. HEENT: Mild pallor, no icterus. NECK: No neck lymph nodes. HEART: S1, S2. Port present. LUNGS: Clear to auscultation. ABDOMEN: Soft, distention present. EXTREMITIES: No calf tenderness. NEUROLOGIC: Alert, awake, oriented. LABORATORY DATA: White cell 8, hemoglobin 9.8, MCV 80, platelets 249. INR 1.1. Potassium 4.4, creatinine 1.4, calcium 8.9, bilirubin 0.4. RADIOLOGY: Chest x-ray was done. ASSESSMENT AND PLAN: 1. Abdomen distention, likely malignant ascites. Paracentesis is being planned. There is a question if drainage tube can be placed there. 2. History of right pleural effusion, has PleurX catheter. 3. History of uterine cancer recurrence, on the second line Doxil, cycle 2 due on 02/26/2019. 4. History of left breast cancer, status post treatment in [place] in 2004. She received chemotherapy, radiation and Herceptin. 5. Elevated tumor marker. 6. Diabetes. 7. Hypertension. 8. Mild anemia. I will follow the patient during inpatient stay and then in the clinic setting. JOB# [id number] NM/NTS
--- NOTE | 2019-02-10 06:48 | Progress Note ---
Assessment and Plan - Patient Problems (1) Ascites Current Visit: Yes Status: Acute Qualifiers: Ascites type: malignant Qualified Code(s): R18.0 - Malignant ascites Plan to address problem: Had 4 liters drained today by Radiology Fluid sent to lab for cell count and chemistry (2) Uterine cancer Current Visit: Yes Status: Chronic Qualifiers: Malignant neoplasm of uterus location: unspecified site of uterus Qualified Code(s): C55 - Malignant neoplasm of uterus, part unspecified Plan to address problem: Defer to oncology (3) Bilateral pleural effusion Current Visit: Yes Status: Chronic Plan to address problem: Has Rt pleurx catheter draining 30 ml of fluid everyday (4) HTN (hypertension) Current Visit: Yes Status: Chronic Qualifiers: Hypertension type: essential hypertension Qualified Code(s): I10 - Essentia l (primary) hypertension Plan to address problem: Cont antihypertensives (5) T2DM (type 2 diabetes mellitus) Current Visit: Yes Status: Chronic Qualifiers: Diabetes mellitus snf insulin use: unspecified adjunct faculty for medical terminology insulin use status Plan to address problem: coverage (6) Discharge planning issues Current Visit: Yes Status: Acute Plan to address problem: Possible discharge tomorrow (7) DVT prophylaxis Current Visit: Yes Status: Acute Plan to address problem: On scd,s and GI prophylaxis Subjective Date of service: 02/09/19 Principal diagnosis: Severe Ascites Interval history: 58 yo with uterine cancer on chemo, admitted with worsening abd discomfort and distension. Has chronic SOB, made worse by worsening abd girth. Symptoms better after paracentesis which was just done, with ~ 4 liters off. Denies chest pain, fevers, chills. Has a dry cough. PleurX cath placed for R effusion 12/2018, now draining only ~ 30mL every other day. Objective - Constitutional Vitals: Vital Signs - 12hr 02/09/19 02/09/19 02/09/19 19:30 20:58 23:26 Temperature 99.0 F Pulse Rate 115 H Respiratory 17 17 22 Rate Respiratory 18 Rate [ABD] Blood Pressure 138/74 O2 Sat by Pulse 95 Oximetry 02/10/19 06:00 Temperature 98.1 F Pulse Rate 109 H Respiratory 20 Rate Respiratory Rate [ABD] Blood Pressure 114/65 O2 Sat by Pulse 95 Oximetry General appearance: Present: no acute distress, well-nourished - EENT Eyes: PERRL, EOM intact ENT: hearing intact, clear oral mucosa Ears: bilateral: normal - Neck Neck: supple, normal ROM - Respiratory Respiratory effort: normal Respiratory: bilateral: CTA - Breasts Breasts: normal - Cardiovascular Heart rate: 78 Rhythm: regular Heart Sounds: Present: S1 & S2. Absent: gallop, rub Extremities: no ischemia, pulses intact, No edema, normal color, Full ROM - Gastrointestinal General gastrointestinal: Present: soft, distended, normal bowel sounds Rectal Exam: deferred - Genitourinary Female genitourinary: normal - Integumentary Integumentary: clear, warm, dry - Musculoskeletal Musculoskeletal: 1, strength equal bilaterally - Neurologic Neurologic: moves all extremities - Psychiatric Psychiatric: memory intact, appropriate mood/affect, intact judgment & insight - Allied health notes Allied health notes reviewed: nursing, case management - Labs CBC & Chem 7: 02/08/19 16:29 02/08/19 16:29
--- NOTE | 2019-02-10 07:18 | Hem/Onc Progress Note ---
Assessment and Plan 1. Abdomen distention, likely malignant ascites. Paracentesis done. 2. History of right pleural effusion, has PleurX catheter. 3. History of uterine cancer recurrence, on the second line Doxil, cycle 2 due on 02/26/2019. 4. History of left breast cancer, status post treatment in [place] in 2004. She received chemotherapy, radiation and Herceptin. 5. Elevated tumor marker. 6. Diabetes. 7. Hypertension. 8. Mild anemia. I will follow the patient during inpatient stay and then in the clinic setting. s/p paracentesis OP follow up an option - Patient Problems (1) Uterine cancer Current Visit: Yes Status: Chronic Qualifiers: Malignant neoplasm of uterus location: unspecified site of uterus Qualified Code(s): C55 - Malignant neoplasm of uterus, part unspecified Subjective Date of service: 02/10/19 Principal diagnosis: uterine ca - stage IV Interval history: s/p paracentesis Objective - Exam Narrative Exam: Pain - abdo discomfort General appearance - no acute distress Performance status - limited self care Eyes - no icterus ENT - no bleeding LNs cervical not palpable Neck - no LN Respiratory Normal Breath sounds - CTA anteriorly CVS S1 S2 + Extremities no edema General GI Soft - distended Rectal deferred female - deferred Skin warm Musculoskeletal moves limbs Neurologically -alert awake - Constitutional Vitals: Last Vital Signs Temp 98.1 F 02/10/19 06:00 Pulse 109 H 02/10/19 06:00 Resp 20 02/10/19 06:00 BP 114/65 02/10/19 06:00 Pulse Ox 95 02/10/19 06:00 Medications & Allergies - Medications Allergies/Adverse Reactions: Allergies No Known Allergies Allergy (Verified 06/19/17 09:23) Home Medications: Home Medications Medication Instructions Recorded Confirmed Last Taken Type Calcium Carbonate [Calcium] 500 mg PO DAILY 06/19/17 02/09/19 06/22/17 History Cholecalciferol (Vitamin D3) 2,000 unit PO DAILY 06/19/17 02/09/19 06/22/17 History [Vitamin D3] amLODIPine [Norvasc] 10 mg PO DAILY 06/19/17 02/09/19 06/23/17 10:00 History metFORMIN [Glucophage] 500 mg PO QDAY 06/19/17 02/09/19 06/21/17 History Acetaminophen/Codeine [Tylenol 1 tab PO Q6H PRN 02/09/19 02/09/19 Unknown History /Codeine # 3 tab] Ondansetron [Zofran Odt] 4 mg PO Q8HR PRN 02/09/19 02/09/19 Unknown History Active Medications: Generic Name Dose Route Start Last Admin Trade Name Freq PRN Reason Stop Dose Admin Acetaminophen 650 mg 02/09/19 01:49 02/09/19 18:30 Tylenol PO 650 mg Q4H PRN Administration Pain MILD(1-3)/Fever >100.5/SAMANIEGO Enoxaparin Sodium 40 mg 02/09/19 10:00 02/09/19 09:49 Lovenox SUB-Q 40 mg QDAY@1000 LUIS MIGUEL Administration Furosemide 20 mg 02/09/19 10:00 02/09/19 09:50 Lasix IV 20 mg QDAY [facility] MIGUEL Administration Hydralazine HCl 5 mg 02/09/19 20:42 Apresoline IV Q4HR PRN Blood Pressure Magnesium Hydroxide 30 ml 02/09/19 01:49 Milk Of Magnesia PO Q4H PRN Constipation Ondansetron HCl 4 mg 02/09/19 01:49 Zofran IV Q8H PRN Nausea And Vomiting Spironolactone 50 mg 02/09/19 10:00 02/09/19 09:51 Aldactone PO 50 mg QDAY [facility] MIGUEL Administration
[2019-02-10] MEDS: LOVENOX SUB-Q SCH (09:35)
[2019-02-10] MEDS: LASIX IV SCH (09:36)
[2019-02-10] MEDS: ALDACTONE PO SCH (09:36)
--- NOTE | 2019-02-10 10:38 | Discharge Summary ---
Providers - Providers Date of Admission: 02/09/19 02:35 Attending physician: ASAEL PITTMAN MD 02/09/19 03:29 Consult to Interventional Radiology [CONS] Routine Consulting Provider: VERN SUE Reason For Exam: paracentesis Place consult to:: DR. REYES Notified:: DR. REYES 02/09/19 03:34 Consult to Physician [CONS] Routine Comment: Consulting Provider: AVA DUNCAN Physician Instructions: Reason For Exam: uterine ca 02/09/19 04:04 Consult to Physician [CONS] Routine Comment: Consulting Provider: VERN REYES Physician Instructions: Reason For Exam: paracenthesis 02/09/19 11:06 Consult to Physician [CONS] Routine Comment: Consulting Provider: RAFAEL SCHNEIDER Physician Instructions: Reason For Exam: pleural catheter with decreasing fluid ?remove Primary care physician: JACINTA LAUGHLIN MD Hospitalization Condition: Stable Hospital course: 58-year-old woman who was sent to the hospital by her oncologist for worsening ascites. She has a history of uterine cancer on chemotherapy, she had paracentesis several weeks prior. She also has a right pleural tunneled catheter, she states that she was not having drainage from that.. She was giving diuretics, she went on to have paracentesis, 4.1 L were removed. She was also seen by pulmonology and given minimal loculated right lung effusion and very minimal output from Pleurx catheter. Pulmonology recommended removal of Pleurx catheter. 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 Disposition: [id number]/TX-06 HOME UNDER HOME [facility] Time spent for discharge: 35 minutes Core Measure Documentation - Palliative Care Palliative Care/ Comfort Measures: Not Applicable - Core Measures Any of the following diagnoses?: none Exam - Constitutional Vitals: Temp Pulse Resp BP Pulse Ox 98.1 F 109 H 20 114/65 95 02/10/19 06:00 02/10/19 06:00 02/10/19 06:00 02/10/19 06:00 02/10/19 06:00 General appearance: Present: obese, other (Appears chronically ill) - EENT Eyes: Present: PERRL ENT: hearing intact, clear oral mucosa - Neck Neck: Present: supple, normal ROM - Respiratory Respiratory effort: normal Respiratory: bilateral: CTA - Cardiovascular Heart Sounds: Present: S1 & S2. Absent: rub, click - Extremities Extremities: pulses symmetrical, No edema Peripheral Pulses: within normal limits - Abdominal General gastrointestinal: Present: soft, non-tender, non-distended, normal bowel sounds Female genitourinary: Present: normal - Integumentary Integumentary: Present: clear, warm, dry - Musculoskeletal Musculoskeletal: gait normal, strength equal bilaterally - Psychiatric Psychiatric: appropriate mood/affect, intact judgment & insight - Neurologic Neurologic: CNII-XII intact, moves all extremities Plan Follow up with: JACINTA LAUGHLIN MD [Primary Care Provider] - 7 Days Prescriptions: Acetaminophen/Codeine [Tylenol /Codeine # 3 tab] 1 tab PO Q6H PRN #14 PRN Reason: Pain , Severe (7-10) Ondansetron [Zofran ODT TAB] 4 mg PO Q8HR PRN #30 PRN Reason: Nausea
--- NOTE | 2019-02-10 10:45 | Progress Note ---
Assessment and Plan Assessment and plan: 58-year-old woman who was sent to the hospital by her oncologist for worsening ascites. She has a history of uterine cancer on chemotherapy, she had paracentesis several weeks prior. She also has a right pleural tunneled catheter, she states that she was not having drainage from that.. She was giving diuretics, she went on to have paracentesis, 4.1 L were removed. She was also seen by pulmonology and given minimal loculated right lung effusion and very minimal output from Pleurx catheter. Pulmonology recommended removal of Pleurx catheter. Pleurx catheter to be taken out tomorrow Diagnosis Malignant ascites Uterine cancer on chemotherapy Malignant right lung effusion, resolving acute on chronic respiratory failure History Interval history: She continues to complain of generalized body aches Review of systems Constitutional: No fevers, complaining of chronic weakness CVS: No chest pain, no orthopnea, no pedal edema GI: No abdominal pain, abdominal distention is much improved Respiratory: No shortness of breath, no wheezing, no coughing Hospitalist Physical - Physical exam Narrative exam: General.: Appears chronically ill HEENT: Moist mucous membranes, extraocular muscles intact, no lymphadenopathy Neck: supple Cardiac: S1-S2 heard Lungs: clear to auscultation bilaterally Abdomen: soft , nontender, mild distension, bowel sounds positive Extremities: no edema clubbing or cyanosis Skin: no rash or lesions Neurologic: no gross focal deficits Psych: calm, and cooperative - Constitutional Vitals: Temp Pulse Resp BP Pulse Ox 98.1 F 109 H 20 114/65 95 02/10/19 06:00 02/10/19 06:00 02/10/19 06:00 02/10/19 06:00 02/10/19 06:00 General appearance: Present: obese, other (Appears chronically ill) Results - Labs CBC & Chem 7: 02/08/19 16:29 02/10/19 10:48 Labs: Laboratory Last Values WBC 8.7 K/mm3 (4.5-11.0) 02/08/19 16:29 RBC 3.80 M/mm3 (3.65-5.03) 02/08/19 16:29 Hgb 9.8 gm/dl (10.1-14.3) L 02/08/19 16:29 Hct 30.4 % (30.3-42.9) 02/08/19 16:29 MCV 80 fl (79-97) 02/08/19 16:29 MCH 26 pg (28-32) L 02/08/19 16:29 MCHC 32 % (30-34) 02/08/19 16:29 RDW 15.3 % (13.2-15.2) H 02/08/19 16:29 Plt Count 249 K/mm3 (140-440) 02/08/19 16:29 PT 14.3 Sec. (12.2-14.9) 02/08/19 16:29 INR 1.14 (0.87-1.13) H 02/08/19 16:29 APTT 30.4 Sec. (24.2-36.6) 02/08/19 16:29 Sodium 141 mmol/L (137-145) 02/08/19 16:29 Potassium 4.4 mmol/L (3.6-5.0) 02/08/19 16:29 Chloride 99.0 mmol/L (98-107) 02/08/19 16:29 Carbon Dioxide 24 mmol/L (22-30) 02/08/19 16:29 Anion Gap 22 mmol/L 02/08/19 16:29 BUN 18 mg/dL (7-17) H 02/08/19 16:29 Creatinine 1.4 mg/dL (0.7-1.2) H 02/08/19 16:29 Estimated GFR 47 ml/min 02/08/19 16:29 BUN/Creatinine Ratio 13 % 02/08/19 16:29 Glucose 113 mg/dL (65-100) H 02/08/19 16:29 Calcium 8.9 mg/dL (8.4-10.2) 02/08/19 16:29 Total Bilirubin 0.40 mg/dL (0.1-1.2) 02/08/19 16:29 AST 24 units/L (5-40) 02/08/19 16:29 ALT 10 units/L (7-56) 02/08/19 16:29 Alkaline Phosphatase 86 units/L (35-129) 02/08/19 16:29 Total Protein 7.8 g/dL (6.3-8.2) 02/08/19 16:29 Albumin 3.3 g/dL (3.9-5) L 02/08/19 16:29 Albumin/Globulin Ratio 0.7 % 02/08/19 16:29 Active Medications - Current Medications Current Medications: Generic Name Dose Route Start Last Admin Trade Name Freq PRN Reason Stop Dose Admin Acetaminophen 650 mg 02/09/19 01:49 02/09/19 18:30 Tylenol PO 650 mg Q4H PRN Administration Pain MILD(1-3)/Fever >100.5/SAMANIEGO Enoxaparin Sodium 40 mg 02/09/19 10:00 02/10/19 09:35 Lovenox SUB-Q 40 mg QDAY@1000 LUIS MIGUEL Administration Furosemide 20 mg 02/09/19 10:00 02/10/19 09:36 Lasix IV 20 mg QDAY LUIS MIGUEL Administration Hydralazine HCl 5 mg 02/09/19 20:42 Apresoline IV Q4HR PRN Blood Pressure Magnesium Hydroxide 30 ml 02/09/19 01:49 Milk Of Magnesia PO Q4H PRN Constipation Ondansetron HCl 4 mg 02/09/19 01:49 Zofran IV Q8H PRN Nausea And Vomiting Spironolactone 50 mg 02/09/19 10:00 02/10/19 09:36 Aldactone PO 50 mg QDAY LUIS MIGUEL Administration
--- NOTE | 2019-02-10 10:47 | Event Note ---
Date: 02/10/19 Reviewed notes. NPO after MN except sips of water with meds. Plan for pleural catheter removal tomorrow.
[2019-02-10 11:24] LABS: BUN/Creatinine Ratio 13; Blood Urea Nitrogen 14 mg/dL (7-17); Calcium 8.2 mg/dL (8.4-10.2); Hemolysis Index 3
[2019-02-10] MEDS: TYLENOL PO PRN (11:34)
--- NOTE | 2019-02-10 13:17 | Progress Note ---
Assessment and Plan Imp: 1. Pleural effusions 2. Ascites 3. Uterine cancer 4. ALICIA versus CKD Rec: 1. With small output now, and only minimal loculated effusion on R, agree w/ PleurX cath removal 2. Monitor the L effusion radiographically 3. Stop IVFs; cont. gentle diuresis 4. DVT PPx Plan of care reviewed w/ patient, she understands/agrees Subjective Date of service: 02/10/19 Principal diagnosis: uterine ca - stage IV Interval history: No events. No SOB. Having mild abd discomfort. No new complaints. Active Medications Acetaminophen (Tylenol) 650 mg PO Q4H PRN PRN Reason: Pain MILD(1-3)/Fever >100.5/SAMANIEGO Last Admin: 02/10/19 11:34 Dose: 650 mg Documented by: Enoxaparin Sodium (Lovenox) 40 mg SUB-Q QDAY@1000 LUIS MIGUEL Last Admin: 02/10/19 09:35 Dose: 40 mg Documented by: Furosemide (Lasix) 20 mg IV QDAY [facility] Last Admin: 02/10/19 09:36 Dose: 20 mg Documented by: Hydralazine HCl (Apresoline) 5 mg IV Q4HR PRN PRN Reason: Blood Pressure Magnesium Hydroxide (Milk Of Magnesia) 30 ml PO Q4H PRN PRN Reason: Constipation Ondansetron HCl (Zofran) 4 mg IV Q8H PRN PRN Reason: Nausea And Vomiting Spironolactone (Aldactone) 50 mg PO QDAY [facility] Last Admin: 02/10/19 09:36 Dose: 50 mg Documented by: Objective Vital Signs - 12hr 02/10/19 02/10/19 06:00 11:19 Temperature 98.1 F 99.1 F Pulse Rate 109 H 112 H Respiratory 20 22 Rate Blood Pressure 114/65 138/78 O2 Sat by Pulse 95 98 Oximetry Constitutional: no acute distress, alert Eyes: non-icteric ENT: oropharynx moist Neck: supple, no lymphadenopathy Effort: normal Ascultation: Bilateral: diminished breath sounds (bases) Cardiovascular: regular rate and rhythm (no mrg) Gastrointestinal: normoactive bowel sounds, soft, non-tender, non-distended Integumentary: normal Extremities: no cyanosis, no edema, pink and warm Neurologic: normal mental status, non-focal exam, pupils equal and round, CN II- XII normal Psychiatric: mood appropriate, affect normal CBC and BMP: 02/08/19 16:29 02/10/19 10:48 ABG, PT/INR, D-dimer: PT/INR, D-dimer PT 14.3 Sec. (12.2-14.9) 02/08/19 16:29 INR 1.14 (0.87-1.13) H 02/08/19 16:29 Abnormal lab findings: Abnormal Labs 02/08/19 02/08/19 02/08/19 16:29 16:29 16:29 Hgb 9.8 L MCH 26 L RDW 15.3 H INR 1.14 H BUN 18 H Creatinine 1.4 H Glucose 113 H Calcium Albumin 3.3 L 02/10/19 10:48 Hgb MCH RDW INR BUN Creatinine Glucose 120 H Calcium 8.2 L Albumin Chest x-ray: report reviewed, image reviewed CT scan - chest: report reviewed, image reviewed
--- NOTE | 2019-02-11 07:08 | Hem/Onc Progress Note ---
Assessment and Plan 1. Abdomen distention, likely malignant ascites. Paracentesis done. 2. History of right pleural effusion, has PleurX catheter. 3. History of uterine cancer recurrence, on the second line Doxil, cycle 2 due on 02/26/2019. 4. History of left breast cancer, status post treatment in [place] in 2004. She received chemotherapy, radiation and Herceptin. 5. Elevated tumor marker. 6. Diabetes. 7. Hypertension. 8. Mild anemia. I will follow the patient during inpatient stay and then in the clinic setting. s/p paracentesis OP follow up an option path will IX for markers due pleurex removal - Patient Problems (1) Uterine cancer Current Visit: Yes Status: Chronic Qualifiers: Malignant neoplasm of uterus location: unspecified site of uterus Qualified Code(s): C55 - Malignant neoplasm of uterus, part unspecified Subjective Date of service: 02/11/19 Principal diagnosis: uterine ca Interval history: path called - to say cancer in ascites due pleurex removal Objective - Exam Narrative Exam: Pain - abdo discomfort General appearance - no acute distress Performance status - limited self care Eyes - no icterus ENT - no bleeding LNs cervical not palpable Neck - no LN Respiratory Normal Breath sounds - CTA anteriorly CVS S1 S2 + Extremities no edema General GI Soft - distended Rectal deferred female - deferred Skin warm Musculoskeletal moves limbs Neurologically -alert awake - Constitutional Vitals: Last Vital Signs Temp 99.0 F 02/11/19 05:51 Pulse 117 H 02/11/19 05:51 Resp 20 02/11/19 05:51 BP 136/79 02/11/19 05:51 Pulse Ox 96 02/11/19 05:51 - Labs Lab Results: Laboratory Results - last 24 hr 02/10/19 10:48 Sodium 140 Carbon Dioxide 24 BUN 14 Creatinine 1.1 Estimated GFR > 60 BUN/Creatinine Ratio 13 Glucose 120 H Calcium 8.2 L Medications & Allergies - Medications Allergies/Adverse Reactions: Allergies No Known Allergies Allergy (Verified 06/19/17 09:23) Home Medications: Home Medications Medication Instructions Recorded Confirmed Last Taken Type Calcium Carbonate [Calcium] 500 mg PO DAILY 06/19/17 02/09/19 06/22/17 History Cholecalciferol (Vitamin D3) 2,000 unit PO DAILY 06/19/17 02/09/19 06/22/17 History [Vitamin D3] amLODIPine [Norvasc] 10 mg PO DAILY 06/19/17 02/09/19 06/23/17 10:00 History metFORMIN [Glucophage] 500 mg PO QDAY 06/19/17 02/09/19 06/21/17 History Acetaminophen/Codeine [Tylenol 1 tab PO Q6H PRN #14 02/10/19 Unknown Rx /Codeine # 3 tab] Ondansetron [Zofran ODT TAB] 4 mg PO Q8HR PRN #30 02/10/19 Unknown Rx Active Medications: Generic Name Dose Route Start Last Admin Trade Name Freq PRN Reason Stop Dose Admin Acetaminophen 650 mg 02/09/19 01:49 02/10/19 11:34 Tylenol PO 650 mg Q4H PRN Administration Pain MILD(1-3)/Fever >100.5/SAMANIEGO Enoxaparin Sodium 40 mg 02/09/19 10:00 02/10/19 09:35 Lovenox SUB-Q 40 mg QDAY@1000 LUIS MIGUEL Administration Furosemide 20 mg 02/09/19 10:00 02/10/19 09:36 Lasix IV 20 mg QDAY LUIS MIGUEL Administration Hydralazine HCl 5 mg 02/09/19 20:42 Apresoline IV Q4HR PRN Blood Pressure Magnesium Hydroxide 30 ml 02/09/19 01:49 Milk Of Magnesia PO Q4H PRN Constipation Ondansetron HCl 4 mg 02/09/19 01:49 Zofran IV Q8H PRN Nausea And Vomiting Spironolactone 50 mg 02/09/19 10:00 02/10/19 09:36 Aldactone PO 50 mg QDAY LUIS MIGUEL Administration
[2019-02-11] MEDS ORDERED: HEPARIN/NS 5000 UNIT/500ML(CATH LAB) 500 ML IR ONE (08:10)
[2019-02-11] MEDS ORDERED: NACL 0.9% 0 ML IR ONE (08:22)
[2019-02-11] MEDS ORDERED: NACL 0.9% 250ML 250 ML ONE (08:24)
[2019-02-11] MEDS: VERSED ONE ×2 (08:35→08:55)
[2019-02-11] MEDS: SUBLIMAZE ONE ×2 (08:35→08:55)
[2019-02-11] MEDS: XYLOCAINE 1%/ EPI 1:100,000 INFILTRATI ONE ×3 (08:37→08:51)
--- NOTE | 2019-02-11 09:09 | Operative Report ---
Operative Report Operative Report: Exam: Right tunneled chest tube removal Clinical indication: Patient with a history of indwelling right Pleurx, pleural fluid has resolved, catheter no longer needed Date: 02/11/2019 Procedure: Following an explanation of the risks, benefits and alternatives; written informed consent was obtained. The patient was brought to the angiographic suite and placed in supine position on the examination table. Initial fluoroscopic imaging demonstrated appropriate positioning of the patient's indwelling Pleurx catheter. The patient's right flank catheter exit site and catheter were prepped and draped in the usual sterile fashion. 1% lidocaine was used for anesthesia at the catheter exit site and along the tunnel tract. A 0.035 Glidewire was advanced through the catheter. Using accommodation of sharp and blunt dissection, the catheter Was dissected free. The catheter was then removed intact. Procedure fluoroscopic images demonstrated no remaining Pleurx catheter and no significant pneumothorax. Hemostasis was achieved at the catheter exit site and along the tunnel tract using manual compression. A sterile pressure dressing was then applied to the lateral right chest wall. The patient tolerated the procedure well. There were no immediate post procedure complications. Conscious sedation was performed under the guidance or radiologic nursing. Continuous cardiopulmonary monitoring was utilized. Impression: Removal of right tunneled chest tube.
--- NOTE | 2019-02-11 10:28 | XRay Report ---
CHEST 1 VIEW INDICATION: s/p right pleuryx removal. COMPARISON: 02/08/2019 FINDINGS: Support devices: Right [id number] remains in the same position. Right chest tube has been removed. Heart: Within normal limits. Lungs/Pleura: No evidence for pneumothorax. Bibasilar atelectatic changes and small pleural effusions are suspected. Hazy opacity in the right midlung is unchanged and probably represents fluid within t he minor fissure. The upper lung zones are clear. Additional findings: None. IMPRESSION: Chest tube removal. No acute process. Bibasal atelectatic changes and small pleural fluid. Signer Name: Chuck Cruz Jr, MD Signed: 02/11/2019 10:24 AM Workstation Name: [id number]
[2019-02-11] MEDS: ALDACTONE PO SCH (11:04)
[2019-02-11] MEDS: LOVENOX SUB-Q SCH (11:06)
[2019-02-11] MEDS: LASIX IV SCH (11:06)
--- NOTE | 2019-02-11 13:38 | Progress Note ---
Assessment and Plan Imp: 1. Pleural effusions 2. Ascites 3. Uterine cancer 4. ALICIA versus CKD Rec: 1. PleurX cath removed 2. Monitor the L effusion radiographically 3. Stable pulm-vera 4. Home O2 eval. prior to d/c 5. Can f/u with us in 1-2 weeks for repeat CXR Plan of care reviewed w/ patient, she understands/agrees Subjective Date of service: 02/11/19 Principal diagnosis: uterine ca Interval history: No events. No SOB. Having mild abd discomfort. No new complaints. Had PleurX removed w/o incident. Active Medications Acetaminophen (Tylenol) 650 mg PO Q4H PRN PRN Reason: Pain MILD(1-3)/Fever >100.5/SAMANIEGO Last Admin: 02/10/19 11:34 Dose: 650 mg Documented by: Enoxaparin Sodium (Lovenox) 40 mg SUB-Q QDAY@1000 LUIS MIGUEL Last Admin: 02/11/19 11:06 Dose: 40 mg Documented by: Furosemide (Lasix) 20 mg IV QDAY [facility] Last Admin: 02/11/19 11:06 Dose: 20 mg Documented by: Hydralazine HCl (Apresoline) 5 mg IV Q4HR PRN PRN Reason: Blood Pressure Magnesium Hydroxide (Milk Of Magnesia) 30 ml PO Q4H PRN PRN Reason: Constipation Ondansetron HCl (Zofran) 4 mg IV Q8H PRN PRN Reason: Nausea And Vomiting Spironolactone (Aldactone) 50 mg PO QDAY [facility] Last Admin: 02/11/19 11:04 Dose: 50 mg Documented by: Objective Vital Signs - 12hr 02/11/19 02/11/19 02/11/19 05:51 07:35 11:04 Temperature 99.0 F Pulse Rate 117 H 96 H Respiratory 20 16 Rate Blood Pressure 136/79 148/79 O2 Sat by Pulse 96 Oximetry 02/11/19 12:25 Temperature 97.6 F Pulse Rate 124 H Respiratory 18 Rate Blood Pressure 126/79 O2 Sat by Pulse 94 Oximetry Constitutional: no acute distress, alert Eyes: non-icteric ENT: oropharynx moist Neck: supple, no lymphadenopathy Effort: normal Ascultation: Bilateral: diminished breath sounds (bases) Cardiovascular: regular rate and rhythm (no mrg) Gastrointestinal: normoactive bowel sounds, soft, non-tender, non-distended Integumentary: normal Extremities: no cyanosis, no edema, pink and warm Neurologic: normal mental status, non-focal exam, pupils equal and round, CN II- XII normal Psychiatric: mood appropriate, affect normal CBC and BMP: 02/08/19 16:29 02/10/19 10:48 ABG, PT/INR, D-dimer: PT/INR, D-dimer PT 14.3 Sec. (12.2-14.9) 02/08/19 16:29 INR 1.14 (0.87-1.13) H 02/08/19 16:29 Abnormal lab findings: Abnormal Labs 02/08/19 02/08/19 02/08/19 16:29 16:29 16:29 Hgb 9.8 L MCH 26 L RDW 15.3 H INR 1.14 H BUN 18 H Creatinine 1.4 H Glucose 113 H Calcium Albumin 3.3 L 02/10/19 10:48 Hgb MCH RDW INR BUN Creatinine Glucose 120 H Calcium 8.2 L Albumin Chest x-ray: report reviewed, image reviewed (unchanged except PleurX out)
[2019-02-11] MEDS: TYLENOL PO PRN (20:34)
--- NOTE | 2019-02-12 07:04 | Hem/Onc Progress Note ---
Assessment and Plan 1. Abdomen distention, likely malignant ascites. Paracentesis done. 2. History of right pleural effusion, has PleurX catheter. 3. History of uterine cancer recurrence, on the second line Doxil, cycle 2 due on 02/26/2019. 4. History of left breast cancer, status post treatment in [place] in 2004. She received chemotherapy, radiation and Herceptin. 5. Elevated tumor marker. 6. Diabetes. 7. Hypertension. 8. Mild anemia. I will follow the patient during inpatient stay and then in the clinic setting. s/p paracentesis OP follow up an option path will IX for markers pleurex cath removed - Patient Problems (1) Uterine cancer Current Visit: Yes Status: Chronic Qualifiers: Malignant neoplasm of uterus location: unspecified site of uterus Qualified Code(s): C55 - Malignant neoplasm of uterus, part unspecified Subjective Date of service: 02/12/19 Principal diagnosis: uterine ca Interval history: s/p pleuex cath removal Objective - Exam Narrative Exam: Pain - abdo discomfort General appearance - no acute distress Performance status - limited self care Eyes - no icterus ENT - no bleeding LNs cervical not palpable Neck - no LN Respiratory Normal Breath sounds - CTA anteriorly CVS S1 S2 + Extremities no edema General GI Soft - distended Rectal deferred female - deferred Skin warm Musculoskeletal moves limbs Neurologically -alert awake - Constitutional Vitals: Last Vital Signs Temp 98.5 F 02/12/19 04:31 Pulse 124 H 02/12/19 04:31 Resp 18 02/12/19 04:31 BP 148/85 02/12/19 04:31 Pulse Ox 89 02/12/19 04:31 Medications & Allergies - Medications Allergies/Adverse Reactions: Allergies No Known Allergies Allergy (Verified 06/19/17 09:23) Home Medications: Home Medications Medication Instructions Recorded Confirmed Last Taken Type Calcium Carbonate [Calcium] 500 mg PO DAILY 06/19/17 02/09/19 06/22/17 History Cholecalciferol (Vitamin D3) 2,000 unit PO DAILY 06/19/17 02/09/19 06/22/17 History [Vitamin D3] amLODIPine [Norvasc] 10 mg PO DAILY 06/19/17 02/09/19 06/23/17 10:00 History metFORMIN [Glucophage] 500 mg PO QDAY 06/19/17 02/09/19 06/21/17 History Acetaminophen/Codeine [Tylenol 1 tab PO Q6H PRN #14 02/10/19 Unknown Rx /Codeine # 3 tab] Ondansetron [Zofran ODT TAB] 4 mg PO Q8HR PRN #30 02/10/19 Unknown Rx Active Medications: Generic Name Dose Route Start Last Admin Trade Name Freq PRN Reason Stop Dose Admin Acetaminophen 650 mg 02/09/19 01:49 02/11/19 20:34 Tylenol PO 650 mg Q4H PRN Administration Pain MILD(1-3)/Fever >100.5/SAMANIEGO Enoxaparin Sodium 40 mg 02/09/19 10:00 02/11/19 11:06 Lovenox SUB-Q 40 mg QDAY@1000 LUIS MIGUEL Administration Furosemide 20 mg 02/09/19 10:00 02/11/19 11:06 Lasix IV 20 mg QDAY LUIS MIGUEL Administration Hydralazine HCl 5 mg 02/09/19 20:42 Apresoline IV Q4HR PRN Blood Pressure Magnesium Hydroxide 30 ml 02/09/19 01:49 Milk Of Magnesia PO Q4H PRN Constipation Ondansetron HCl 4 mg 02/09/19 01:49 Zofran IV Q8H PRN Nausea And Vomiting Spironolactone 50 mg 02/09/19 10:00 02/11/19 11:04 Aldactone PO 50 mg QDAY LUIS MIGUEL Administration
[2019-02-12] MEDS: LOVENOX SUB-Q SCH (10:14)
[2019-02-12] MEDS: LASIX IV SCH (10:16)
[2019-02-12] MEDS: ALDACTONE PO SCH (10:22)
--- NOTE | 2019-02-12 13:24 | Progress Note ---
Assessment and Plan Assessment and plan: 58-year-old woman who was sent to the hospital by her oncologist for worsening ascites. She has a history of uterine cancer on chemotherapy, she had paracentesis several weeks prior. She also has a right pleural tunneled catheter, she states that she was not having drainage from that.. She was giving diuretics, she went on to have paracentesis, 4.1 L were removed. She was also seen by pulmonology and given minimal loculated right lung effusion and very minimal output from Pleurx catheter. Pulmonology recommended removal of Pleurx catheter. Pleurx catheter removed on 02/11 awaiting home oxygen set up prior to dc Diagnosis Malignant ascites Uterine cancer on chemotherapy Malignant right lung effusion, improving lung metastases acute on chronic respiratory failure, requires home oxygen History Interval history: Review of systems Constitutional: No fevers, complaining of chronic weakness CVS: No chest pain, no orthopnea, no pedal edema GI: No abdominal pain, abdominal distention is much improved Respiratory: No shortness of breath, no wheezing, no coughing Hospitalist Physical - Physical exam Narrative exam: General.: Appears chronically ill HEENT: Moist mucous membranes, extraocular muscles intact, no lymphadenopathy Neck: supple Cardiac: S1-S2 heard Lungs: clear to auscultation bilaterally Abdomen: soft , nontender, mild distension, bowel sounds positive Extremities: no edema clubbing or cyanosis Skin: no rash or lesions Neurologic: no gross focal deficits Psych: calm, and cooperative - Constitutional Vitals: Temp Pulse Resp BP Pulse Ox 98.9 F 116 H 19 135/75 97 02/12/19 12:45 02/12/19 12:45 02/12/19 12:45 02/12/19 12:45 02/12/19 12:45 General appearance: Present: obese, other (Appears chronically ill) Results - Labs CBC & Chem 7: 02/08/19 16:29 02/10/19 10:48 Labs: Laboratory Last Values WBC 8.7 K/mm3 (4.5-11.0) 02/08/19 16:29 RBC 3.80 M/mm3 (3.65-5.03) 02/08/19 16:29 Hgb 9.8 gm/dl (10.1-14.3) L 02/08/19 16:29 Hct 30.4 % (30.3-42.9) 02/08/19 16:29 MCV 80 fl (79-97) 02/08/19 16:29 MCH 26 pg (28-32) L 02/08/19 16:29 MCHC 32 % (30-34) 02/08/19 16:29 RDW 15.3 % (13.2-15.2) H 02/08/19 16:29 Plt Count 249 K/mm3 (140-440) 02/08/19 16:29 PT 14.3 Sec. (12.2-14.9) 02/08/19 16:29 INR 1.14 (0.87-1.13) H 02/08/19 16:29 APTT 30.4 Sec. (24.2-36.6) 02/08/19 16:29 Sodium 140 mmol/L (137-145) 02/10/19 10:48 Potassium 4.4 mmol/L (3.6-5.0) 02/08/19 16:29 Chloride 99.0 mmol/L (98-107) 02/08/19 16:29 Carbon Dioxide 24 mmol/L (22-30) 02/10/19 10:48 Anion Gap 22 mmol/L 02/08/19 16:29 BUN 14 mg/dL (7-17) 02/10/19 10:48 Creatinine 1.1 mg/dL (0.7-1.2) 02/10/19 10:48 Estimated GFR > 60 ml/min 02/10/19 10:48 BUN/Creatinine Ratio 13 % 02/10/19 10:48 Glucose 120 mg/dL (65-100) H 02/10/19 10:48 Calcium 8.2 mg/dL (8.4-10.2) L 02/10/19 10:48 Total Bilirubin 0.40 mg/dL (0.1-1.2) 02/08/19 16:29 AST 24 units/L (5-40) 02/08/19 16:29 ALT 10 units/L (7-56) 02/08/19 16:29 Alkaline Phosphatase 86 units/L (35-129) 02/08/19 16:29 Total Protein 7.8 g/dL (6.3-8.2) 02/08/19 16:29 Albumin 3.3 g/dL (3.9-5) L 02/08/19 16:29 Albumin/Globulin Ratio 0.7 % 02/08/19 16:29 Active Medications - Current Medications Current Medications: Generic Name Dose Route Start Last Admin Trade Name Freq PRN Reason Stop Dose Admin Acetaminophen 650 mg 02/09/19 01:49 02/11/19 20:34 Tylenol PO 650 mg Q4H PRN Administration Pain MILD(1-3)/Fever >100.5/SAMANIEGO Enoxaparin Sodium 40 mg 02/09/19 10:00 02/12/19 10:14 Lovenox SUB-Q 40 mg QDAY@1000 LUIS MIGUEL Administration Furosemide 20 mg 02/09/19 10:00 02/12/19 10:16 Lasix IV 20 mg QDAY LUIS MIGUEL Administration Hydralazine HCl 5 mg 02/09/19 20:42 Apresoline IV Q4HR PRN Blood Pressure Magnesium Hydroxide 30 ml 02/09/19 01:49 Milk Of Magnesia PO Q4H PRN Constipation Ondansetron HCl 4 mg 02/09/19 01:49 02/12/19 10:35 Zofran IV 4 mg Q8H PRN Administration Nausea And Vomiting Spironolactone 50 mg 02/09/19 10:00 02/12/19 10:22 Aldactone PO 50 mg QDAY LUIS MIGUEL Administration
[2019-02-12 16:49] VITALS: BP 122/72
== END 2019-02-12 18:11 | disposition home or self-care (01) | DRG 754 ==
LOC: ED 14:49 → 4A 02-09 02:35 → 3A 02-09 08:32 → UNDODISIN 02-12 13:33
PROVIDERS: ADMIT Internal Medicine; ATTEND Internal Medicine
PROC: 0W9G3ZZ Drainage of Peritoneal Cavity, Percutaneous Approach (ICD-10-PCS; principal; 2019-02-09)
PROC: 0WP930Z Removal of Drainage Device from Right Pleural Cavity, Percutaneous Approach (ICD-10-PCS; 2019-02-11)
PROC: 0JPT3XZ Removal of Tunneled Vascular Access Device from Trunk Subcutaneous Tissue and Fascia, Percutaneous Approach (ICD-10-PCS; 2019-02-11)
DX: C55 Malignant neoplasm of uterus, part unspecified (principal); N17.0 Acute kidney failure with tubular necrosis; J96.21 Acute and chronic respiratory failure with hypoxia; R18.0 Malignant ascites; J91.0 Malignant pleural effusion; C78.00 Secondary malignant neoplasm of unspecified lung; D64.9 Anemia, unspecified; I10 Essential (primary) hypertension; E11.9 Type 2 diabetes mellitus without complications; Z79.84 Long term (current) use of oral hypoglycemic drugs; Z79.899 Other long term (current) drug therapy; Z92.21 Personal history of antineoplastic chemotherapy; Z85.3 Personal history of malignant neoplasm of breast; Z90.12 Acquired absence of left breast and nipple; Z92.3 Personal history of irradiation
CPT/HCPCS: 32552; 36415; 49083; 71045; 71046; 71250; 74176; 80048; 80053; 85027; 85610; 85730; 86304; 88112; 88305; 88342; 93005; 93010; G0378; C1769; J1644; J1650; J1940; J2250; J2270; J2405; J3010; J7050